=== PATIENT | male | born 1980 | race Caucasian/White ===

== ENCOUNTER 2021-02-04 18:56 | Inpatient (IN) | payer MEDICAID ==
[~2021-02-04] VITALS: Ht 185.4 cm; Wt 88.9 kg
[~2021-02-04 18:56] MED LIST: CLONIDINE0.1 PO; DAYPRO600 MG PO; FLEXERIL PO; IBUPROFEN 800800 MG PO; LOPRESSOR50 PO; MEDROL DOSPAK21 TAB PO; MEDROLDOSEPACK PO; NAPROSYN500 MG PO; NOHOMEMEDICATIONS; NORFLEX100 MG PO; ROBAXIN500 MG PO; SOMA250 MG PO; TRAMADOL 50 MG50 MG PO; ULTRAM 50MG TAB50 MG PO; VALIUM2 MG PO; VALIUM5 MG PO; ZOFRAN ODT4 MG PO; ZOFRAN4 MG PO
[2021-02-04 19:11] VITALS: BP 155/96
[2021-02-04] MEDS ORDERED: LISINOPRIL10 MG PO (19:15)
[2021-02-04] MEDS ORDERED: SEROQUEL200 MG PO (19:15)
[2021-02-04] MEDS ORDERED: GABAPENTIN600 M1 PO (19:16)
[2021-02-04 19:41] LABS: URINE BILIRUBIN NEGATIVE (Negative); URINE BLOOD 1+ (Negative); URINE CLARITY CLEAR; URINE COLOR YELLOW; URINE GLUCOSE-RANDOM NEGATIVE (Negative); URINE KETONES NEGATIVE (Negative); URINE LEUKOCYTES-REFLEX NEGATIVE (Negative); URINE NITRITE-REFLEX NEGATIVE (Negative); URINE PROTEIN NEGATIVE (Negative); URINE SPECIFIC GRAVITY 1.015 (1.005-1.030); URINE UROBILINOGEN 0.2 E.U./dl (0.2-1.0)
[2021-02-04 19:50] LABS: SQUAMOUS 0-3 Few /LPF (0-3)
[2021-02-04 19:51] LABS: ABSOLUTE BASOPHILS 0.1 thou/uL (0.0-0.2); ABSOLUTE EOSINOPHILS 0.2 thou/uL (0.0-0.7); ABSOLUTE LYMPHOCYTES 2.2 thou/uL (0.8-5.3); ABSOLUTE MONOCYTES 1.2 thou/uL (0.0-1.2); ABSOLUTE NEUTROPHILS 15.1 thou/uL (1.6-8.1); BASOPHILS 0.5 %; EOSINOPHILS 0.8 %; HEMATOCRIT 35.8 % (42.0-52.0); HEMOGLOBIN 11.9 gm/dL (14.0-18.0); LYMPHOCYTES 11.5 %; MCH 30.5 pg (26.0-34.0); MCHC 33.3 g/dL (28.0-37.0); MCV 91.5 fL (80.0-100.0); MONOCYTES 6.6 %; MPV 6.9 fl. (7.2-11.1); NUCLEATED RBCS 0 /100WBC; PLATELET COUNT* 463 thou/uL (150-400); POLYS 80.6 %; RBC 3.91 mil/uL (4.50-6.00); RDW-CV 13.7 % (10.5-14.5); WBC 18.7 thou/uL (4.0-11.0)
[2021-02-04 19:51] LABS: BACTERIA-REFLEX 1-9 Few /HPF (None Seen); CASTS None Seen /LPF (None Seen); CRYSTALS None Seen /LPF (None Seen); URINE RBC 3-10 Few /HPF (0-2); URINE WBC-REFLEX 0-5 Rare /HPF (0-5)
[2021-02-04 20:02] LABS: CREATININE 0.7 mg/dL (0.6-1.3); POTASSIUM 3.3 mmol/L (3.5-5.1)
[2021-02-04 20:07] LABS: TOTAL BILIRUBIN 0.6 mg/dL (<0.1-1.0); TOTAL PROTEIN 8.2 g/dL (6.4-8.2)
[2021-02-04 22:30] LABS: AMP/METHAMP Negative (Negative); BARBITURATES Negative (Negative); BENZODIAZEPINES Negative (Negative); COCAINE Negative (Negative); METHADONE Negative (Negative); OPIATES Negative (Negative); PCP Negative (Negative); THC Negative (Negative)
[2021-02-04 22:54] LABS: BE 0.2 mmol/L (-2 to +3); PCO2 36.9 mmHg (35.0-45.0); pH 7.434 (7.340-7.450)
[2021-02-04 23:43] VITALS: BP 130/80
[2021-02-05] VITALS: BP 130/81
[2021-02-05] MEDS ORDERED: SEROQUEL200 MG PO ×2 (01:22→01:26)
[2021-02-05] MEDS ORDERED: CATAPRES-TTS 20.2 MG PO (01:23)
[2021-02-05] MEDS ORDERED: CATAPRES0.2 MG PO (01:25)
[2021-02-05 04:00] VITALS: BP 138/73
--- NOTE | 2021-02-05 06:50 | NUR ---
PATIENT ADMITTED TO ROOM 219 FROM THE ER AT APPROXIMATELY MIDNIGHT. REPORT GIVEN FROM ER NURSE. PATIENT VERY ANXIOUS AND RESTLESS. PATIENT ORIENTED TO ROOM AND POLICIES. ASSESSMENT CHARTED. FALL EDUCATION GIVEN. CALLED FOR NEW ORDERS FOR ATIVAN AND SEROQUEL. PATIENT PULLING TELE MONITOR/LEADS OFF REGULARLY AND TAKING BATTERY PACK APART AND THROWING IT ON THE FLOOR. PATIENT VERY COMPULSIVE AND NOT WANTING TO LEAVE OXYGEN ON AND KEEPS TAKING IT OFF WELL. PATIENT CALLING FOR PUDDING, JELLO, SNACKS AND BOX LUNCHES FREQUENTLY. PATIENT DIAPHORETIC OFF AND ON. PATIENT STATED THAT HE HAS NOT HAD ANY ALCOHOL IN ALMOST 4 MONTHS BUT STATES THAT HE IS CURRENTLY IN A RECOVERY HOME FOR ALCOHOLISM. DR. HARP NOTIFIED OF THIS AND NEW ORDER GIVEN FOR ATIVAN. PATIENT INSTRUCTED TO USE CALL LIGHT WHEN NEEDING ASSISTANCE. HOURLY ROUNDS MADE. WILL CONTINUE WITH PLAN OF CARE AND NURSING TO MONITOR.
--- NOTE | 2021-02-05 11:24 | EKG ---
[place] [address] ELECTROCARDIOGRAM REPORT Name: LUCHO TURCIOS Room: [address] IN [facility].#: [id number] Admission: 02/04/21 Attend Phys: Deepthi Griffith, Discharge: 02/05/21 Date of : 76 Date of Service: 02/04/21 225 Report #: [id number] THIS REPORT FOR: //name// [facility] ED Test Date: 2021-02-04 Test Time: 22:51:18 Pat Name: LUCHO CHAPPELLKINS Department: Room: Gender: M Artist Manager: [place] : 1980 Requested By: Valerie Zuniga Order Number: [id number] MD: Tomy Bailey Measurements Intervals [place] Rate: 101 P: 41 MO: 174 QRS: 7 QRSD: 97 T: 30 QT: 345 QTc: 448 Interpretive Statements Sinus tachycardia poor r wave progression Left atrial enlargement Baseline wander in lead(s) II,III,aVF,V1,V2,V3,V4,V5,V6 No previous ECG available for comparison Electronically Signed On 02-05-2021 11:24:40 CDT by Tomy Bailey [email or web address] <ELECTRONICALLY SIGNED> By: Tomy Bailey MD, [facility] 02/05/21 1124 225 225 Tomy Bailey MD, [facility] /EPI
== END 2021-02-05 08:22 | disposition left against medical advice (07) | DRG 393 ==
LOC: M.ERS 18:56 → M.TBA-ER 22:54 → M.2W 02-05
PROVIDERS: Nurse Practitioner Family; Personal Emergency Response Attendant; ADMIT Internal Medicine; ATTEND Internal Medicine
DX: K40.90 Unilateral inguinal hernia, without obstruction or gangrene, not specified as recurrent (principal); J96.01 Acute respiratory failure with hypoxia; G89.29 Other chronic pain; M54.9 Dorsalgia, unspecified; I10 Essential (primary) hypertension; F41.9 Anxiety disorder, unspecified; Z53.29 Procedure and treatment not carried out because of patient's decision for other reasons; Z20.822 Contact with and (suspected) exposure to COVID-19; Z79.899 Other long term (current) drug therapy